=== PATIENT | female | born 1955 | race Caucasian/White ===

== ENCOUNTER → 2025-01-14 09:42 | Outpatient (CLI) | payer MEDICARE, OTHER, SELFPAY ==
--- NOTE | 2025-01-14 09:47 | DI.RAD.S_ITS ---
PROCEDURE: XR DEXA AXIAL SKELETON INDICATIONS: screening COMPARISON: None. FINDINGS: Lumbar Spine: Bone mineral density is 0.952 g/cm2, T score -0.9. Left Femoral Neck: Bone mineral density is 0.654 g/cm2, T score -1.8. Left Hip: Bone mineral density 0.848 g/cm2, T score -0.8. Fracture Risk Calculation (when applicable): 10-year fracture risk of a major osteoporotic fracture 20 percent and of a hip fracture 3.5 percent. Fracture probability calculated for nontreated patient. Fracture probability maybe lower if the patient has received treatment. (T score greater or equal to -1.0 to: NORMAL) (T score from -1.1 to -2.4: OSTEOPENIA) (T score less than or equal to -2.5: OSTEOPOROSIS) IMPRESSION: Normal mineralization in the lumbar spine. Left femoral neck indicates osteopenia. See below for recommended follow-up. Follow-up guidelines as follows: Osteoporosis: Consider a repeat DEXA and Vertebral Fracture Assessment (VFA) exam in 2 years or sooner if medically necessary, to reassess this patient's status. Osteopenia: Consider a repeat DEXA in 2-3 years to reassess this patient's status, or if there is a new clinical indication. Normal: Consider a repeat DEXA in 5 years or sooner, or if there is a new clinical indication. All treatment decisions require clinical judgment and consideration of individual patient factors, including patient preferences, comorbidities, previous drug use, risk factors not captured in the FRAX model (e.g., frailty, falls, vitamin D deficiency, increased bone turnover, interval significant decline in bone density ) and possible under- or over-estimation of fracture risk by FRAX. In addition, the NOF Guide recommends that FDA-approved medical therapies be considered in postmenopausal women and men age >= 50 years with a: * Hip or vertebral (clinical or morphometric) fracture * T-score of <=-2.5 at the spine or hip * Ten-year fracture probability by FRAX of >= 3% for hip fracture or >=20% for major osteoporotic fracture. Dictated by: Shauna Falcon RRSal Interpreted: Navi Sprague MD on 01/14/2025 at 13:54 Transcribed by: ERIK on 01/14/2025 at 13:56 Approved by: Navi Sprague M.D. on 01/15/2025 at 8:48
== END ==
PROVIDERS: PCP Family Medicine; Referring Provider Family Medicine; Visit Provider Family Medicine
DX: M85.89 Other specified disorders of bone density and structure, multiple sites (principal)
CPT/HCPCS: 77080

== ENCOUNTER → 2025-02-26 11:06 | Outpatient (CLI) | payer MEDICARE, OTHER, SELFPAY ==
--- NOTE | 2025-02-26 11:06 | DI.MG.S_ITS ---
MM screening mammo BI: 02/26/2025. BI-RADS: 1 CLINICAL: 69-year old female for bilateral screening mammogram. Tyrer-Cuzick lifetime risk of 7.8%. No personal or first-degree family history of breast cancer. PRIOR EXAMS 01/07/2023, 09/15/2020, 05/21/2019. MAMMOGRAPHY TECHNIQUE: 2D and 3D (tomosynthesis) digital mammographic views obtained, with additional images as needed for full coverage. Current study was also evaluated with a Computer Aided Detection (CAD) system. DENSITY C. The breasts are heterogeneously dense, which may obscure small masses. MAMMOGRAPHY FINDINGS Bilateral: No suspicious mass, asymmetry, microcalcification, or other abnormality seen. IMPRESSION: * No evidence of malignancy. RECOMMENDATIONS Bilateral * Annual screening mammography. OVERALL ASSESSMENT CATEGORY BI-RADS-1: Negative. The [employer] recommends annual screening mammography beginning at age 40 for women with average risk of breast cancer. ELECTRONICALLY SIGNED: Elenita Gotti M.D. on 03/01/2025 at 08:22:21 AM PT Interpreting Station ID: [id number]
== END ==
LOC: MAMMO 11:06
PROVIDERS: PCP Family Medicine; Referring Provider Family Medicine; Visit Provider Family Medicine
DX: Z12.31 Encounter for screening mammogram for malignant neoplasm of breast (principal); R92.333 Mammographic heterogeneous density, bilateral breasts
CPT/HCPCS: 77063; 77067